=== PATIENT | male | born 1995 | race Caucasian/White ===

== ENCOUNTER 2017-01-08 21:26 | Emergency (ER) | payer BC ==
[2017-01-08 21:42] VITALS: TEMP 98.1
--- NOTE | 2017-01-08 22:01 | CPEKG ---
Heart Rate: 64 RR Interval: 938 P-R Interval: 120 QRSD Interval: 96 QT Interval: 388 QTC Interval: 401 P [place]: 72 QRS [place]: 66 T Wave [place]: 30 EKG Severity - ABNORMAL ECG - EKG Impression: SINUS RHYTHM EKG Impression: PROBABLE LEFT VENTRICULAR HYPERTROPHY Electronically Signed By: Michelle Haas 10-Jan-2017 00:56:04
--- NOTE | 2017-01-08 22:19 | EDPHY ---
H & P Stated Complaint: anxiety post subtance abuse Time Seen by Provider: 01/08/17 22:05 HPI/ROS: HPI The patient presents brought in by ambulance for anxiety which occurred at about 9:00 p.m. [place]. He said he got out of the shower and began feeling anxious, felt his heart pounding, had blurry vision and tingling throughout his face. He went for a walk and tried to drink some water, however his symptoms did not resolve, thus he called 911. He is wondering if he had a panic attack. He has been smoking methamphetamine for the last 2 nights, not sleeping or eating much. He has been drinking some beer as well. He has been off of his Zyprexa and Wellbutrin because he has run out of his prescriptions. He generally feels paranoid as well. He denies any SI or HI. REVIEW OF SYSTEMS Constitutional: No fever, no chills. Eyes: No discharge. ENT: No sore throat. Cardiovascular: No chest pain, no palpitations. Respiratory: No cough, no shortness of breath. Gastrointestinal: No abdominal pain, no vomiting. Genitourinary: No hematuria. Musculoskeletal: No back pain. Skin: No rashes. Neurological: No headache. PMHx: Asperger's, depression, anxiety Soc Hx: Moved to [place] 2 months ago from [place], lives alone currently , occasional alcohol use, current methamphetamine use PHYSICAL General Appearance: Alert, no distress Eyes: Pupils equal and round no pallor or injection ENT, Mouth: Mucous membranes moist Respiratory: There are no retractions, lungs are clear to auscultation Cardiovascular: Regular rate and rhythm Gastrointestinal: Abdomen is soft and non-tender, no masses, bowel sounds normal Neurological: A&O, moves all extremities Skin: Warm and dry, no rashes Musculoskeletal: Neck is supple non tender Extremities: symmetrical, full range of motion Psychiatric: Patient is oriented X 3, there is no agitation Source: Patient Exam Limitations: No limitations - Personal History Current Tetanus/Diphtheria Vaccine: Unsure - Medical/Surgical History Hx Asthma: No Hx Chronic Respiratory Disease: No Hx Diabetes: No Hx Cardiac Disease: No Hx Renal Disease: No Hx Cirrhosis: No Hx Alcoholism: No Hx HIV/AIDS: No Hx Splenectomy or Spleen Trauma: No Other PMH: PMHx: Aspberger's, depression, anxiety - Social History Smoking Status: Current every day smoker Constitutional: Initial Vital Signs Temperature (C) 36.7 C 01/08/17 21:39 Heart Rate 88 01/08/17 21:39 Respiratory Rate 26 H 01/08/17 21:39 Blood Pressure 136/89 H 01/08/17 21:39 O2 Sat (%) 94 01/08/17 21:39 O2 Delivery Mode Room Air Allergies/Adverse Reactions: No Known Allergies Allergy (Unverified 01/08/17 21:38) Home Medications: Medication Instructions Recorded Buspar (*) 01/08/17 Wellbutrin 100mg (*) 01/08/17 Zyprexa 01/08/17 Medical Decision Making - Diagnostics EKG Interpretation: EKG: Complete interpretation has been separately recorded in the [facility] archive. Summary impression: Normal sinus rhythm Differential Diagnosis: This is a 21-year-old male with Asperger's, anxiety, depression who presents brought in by ambulance for an episode of anxiety, paranoia, palpitations, blurred vision, facial tingling, now all resolved. This is in the setting of methamphetamine use. He denies any SI or HI. Differential diagnosis includes anxiety attack, methamphetamine intoxication, SVT. The patient is feeling much better since he arrived in the emergency room. His vital signs are normal. EKG is unremarkable. I feel he likely had anxiety and paranoia related to methamphetamine use. I have instructed him to resume taking his psychiatric medications, avoid meth, get rest and stay hydrated. He is comfortable going home. Departure - Departure Disposition: Home, Routine, Self-Care Clinical Impression: Anxiety attack, Methamphetamine abuse Condition: Good Instructions: Methamphetamine Abuse (ED), Anxiety (ED) Additional Instructions: Please be sure to get rest, drink plenty of fluids. Please follow-up with your psychiatrist to get refills of your medications. Please avoid methamphetamine use. Referrals: [facility],. [Clinic] - As per Instructions
[2017-01-08 22:28] VITALS: BP 118/71; PULSE 77; RESP 20; O2SAT 95
== END 2017-01-08 22:28 | disposition home or self-care (01) ==
DX: F41.9 Anxiety disorder, unspecified (principal); F15.10 Other stimulant abuse, uncomplicated; F17.200 Nicotine dependence, unspecified, uncomplicated